=== PATIENT | male | born 1995 | race Caucasian/White ===

== ENCOUNTER 2022-07-02 18:14 | Emergency (ER) | payer MEDICAID ==
[~2022-07-02] VITALS: Ht 188 cm; Wt 100.0 kg
[~2022-07-02 18:14] MED LIST: NO HOME MEDS
[2022-07-02 18:18] VITALS: BP 130/77
[2022-07-02] MEDS ORDERED: DOXYCYCLINE 100MG CAPSULE PO STA (19:52)
[2022-07-02] MEDS ORDERED: metroNIDAZOLE 500mg tablet PO ONE (19:55)
[2022-07-02] MEDS ORDERED: CefTRIAXone 1000mg IM Kit (w/lidocaine diluent) IM ONE (19:55)
[2022-07-02] MEDS ORDERED: PENICILLIN G BENZATHINE 2,400,000 UNIT/4 ML SYRINGE IM ONE (20:03)
[2022-07-02] MEDS ORDERED: DOXY-11 PO (20:33)
== END 2022-07-02 20:51 | disposition home or self-care (01) ==
LOC: ER 18:14
DX: A64 Unspecified sexually transmitted disease (principal); F17.200 Nicotine dependence, unspecified, uncomplicated; F12.10 Cannabis abuse, uncomplicated; F15.10 Other stimulant abuse, uncomplicated; F11.10 Opioid abuse, uncomplicated
CPT/HCPCS: 36415; 87491; 87591; 96372; 99284; J0561; J0696

== ENCOUNTER 2022-07-27 12:52 | Emergency (ER) | payer MEDICAID ==
[~2022-07-27] VITALS: Ht 188 cm; Wt 124.4 kg
[2022-07-27 14:28] LABS: BASOPHILS # (AUTO) 0.1 X10'3 (0-0.2); BASOPHILS % (AUTO) 1.3 % (0-1); EOSINOPHILS # (AUTO) 0.3 X10'3 (0-0.9); HEMATOCRIT 41.7 % (42.0-52.0); LYMPHOCYTES % (AUTO) 32.8 % (21-51); MEAN CORPUSCULAR HEMOGLOBIN 31.3 PG (27.0-31.0); MEAN CORPUSCULAR HGB CONC 33.7 g/dL (33.0-36.5); MEAN CORPUSCULAR VOLUME 92.8 FL (78-98); MEAN PLATELET VOLUME 6.9 FL (7.4-10.4); MONOCYTES # (AUTO) 0.8 X10'3 (0-0.9); NEUTROPHILS % (AUTO) 47.9 % (42-75); PLATELET COUNT 311 X10'3 (140-440); RED BLOOD COUNT 4.49 X10'6 (4.70-6.10); RED CELL DISTRIBUTION WIDTH 14.8 % (11.5-14.5); WHITE BLOOD COUNT 6.2 X10'3 (4.5-11.0)
[2022-07-27 14:40] LABS: ALANINE AMINOTRANSFERASE 63 U/L (12-78); ALBUMIN 3.5 G/DL (3.4-5.0); ALKALINE PHOSPHATASE 42 IU/L (46-116); ANION GAP 9 (8-16); ASPARTATE AMINO TRANSFERASE 46 U/L (10-37); BILIRUBIN,TOTAL 0.4 MG/DL (0.1-1.0); BLOOD UREA NITROGEN 13 MG/DL (7-18); BUN/CREATININE RATIO 15.9 (10.0-20.0); CALCIUM 9.1 MG/DL (8.5-10.1); CHLORIDE 104 MMOL/L (99-107); CREATININE 0.82 MG/DL (0.60-1.10); GLUCOSE 85 MG/DL (70-104); POTASSIUM 4.1 MMOL/L (3.5-5.1); SODIUM 141 MMOL/L (135-145); TOTAL PROTEIN 6.9 G/DL (6.4-8.2); eGFR > 90 ML/MIN
[2022-07-27 16:24] VITALS: BP 125/81
== END 2022-07-27 16:26 | disposition home or self-care (01) ==
LOC: ER 12:53
DX: R60.0 Localized edema (principal); J45.909 Unspecified asthma, uncomplicated; F12.90 Cannabis use, unspecified, uncomplicated; F15.20 Other stimulant dependence, uncomplicated
CPT/HCPCS: 36415; 71045; 80053; 83880; 85025; 93005; 99285

== ENCOUNTER 2023-07-28 20:27 | Emergency (ER) | payer MEDICAID ==
[~2023-07-28] VITALS: Ht 188 cm; Wt 99.8 kg
[2023-07-28] MEDS ORDERED: iohexol 300mg/ml 100ml inj. ONE (20:49)
[2023-07-28 20:51] LABS: BASOPHILS # (AUTO) 0.1 X10'3 (0-0.2); EOSINOPHILS # (AUTO) 0.3 X10'3 (0-0.9); EOSINOPHILS % (AUTO) 3.3 % (0-6); HEMATOCRIT 43.6 % (42.0-52.0); HEMOGLOBIN 14.6 g/dl (14.0-17.9); LYMPHOCYTES # (AUTO) 5.2 X10'3 (1.1-4.8); LYMPHOCYTES % (AUTO) 51.1 % (21-51); MEAN CORPUSCULAR HEMOGLOBIN 32.8 PG (27.0-31.0); MEAN CORPUSCULAR HGB CONC 33.4 g/dL (33.0-36.5); MEAN CORPUSCULAR VOLUME 98.1 FL (78-98); MEAN PLATELET VOLUME 6.7 FL (7.4-10.4); MONOCYTES # (AUTO) 0.7 X10'3 (0-0.9); MONOCYTES % (AUTO) 7.1 % (2-12); NEUTROPHILS # (AUTO) 3.8 X10'3 (1.8-7.7); NEUTROPHILS % (AUTO) 37.5 % (42-75); PLATELET COUNT 333 X10'3 (140-440); RED BLOOD COUNT 4.45 X10'6 (4.70-6.10); RED CELL DISTRIBUTION WIDTH 13.9 % (11.5-14.5); WHITE BLOOD COUNT 10.2 X10'3 (4.5-11.0)
[2023-07-28 21:03] LABS: PROTHROMBIN TIME 10.6 SECONDS (9.0-12.0)
[2023-07-28] MEDS: normal saline 1000ML IV soln IVB ONE (21:04)
[2023-07-28 21:20] LABS: ALANINE AMINOTRANSFERASE 90 U/L (12-78); ALBUMIN 3.9 G/DL (3.4-5.0); ALBUMIN/GLOBULIN RATIO 1.1 (1.1-1.5); ALKALINE PHOSPHATASE 53 IU/L (46-116); ANION GAP 15 (8-16); ASPARTATE AMINO TRANSFERASE 56 U/L (10-37); BILIRUBIN,TOTAL 0.5 MG/DL (0.1-1.0); BLOOD UREA NITROGEN 12 MG/DL (7-18); BUN/CREATININE RATIO 12.4 (10.0-20.0); CALCIUM 8.7 MG/DL (8.5-10.1); CHLORIDE 108 MMOL/L (99-107); CREATININE 0.97 MG/DL (0.60-1.10); ETHANOL 143 MG/DL (<10); GLUCOSE 124 MG/DL (70-104); LIPASE 16 U/L (16-77); POTASSIUM 3.1 MMOL/L (3.5-5.1); SODIUM 143 MMOL/L (135-145); TOTAL CARBON DIOXIDE 20.3 MMOL/L (24-32); TOTAL PROTEIN 7.6 G/DL (6.4-8.2); eCRCL 134 ML/MIN; eGFR > 90 ML/MIN
[2023-07-28 22:03] LABS: PLATELET ESTIMATE NORMAL; TOTAL CELLS COUNTED 100
[2023-07-28 22:04] LABS: SMUDGE CELLS 1+
[2023-07-28 22:24] VITALS: BP 115/79; PULSE 100; RESP 14; TEMP 98.5; O2SAT 100
== END 2023-07-28 21:12 | disposition short-term general hospital (02) ==
LOC: ER 20:27
DX: S21.112A Laceration without foreign body of left front wall of thorax without penetration into thoracic cavity, initial encounter (principal); J45.909 Unspecified asthma, uncomplicated; F12.90 Cannabis use, unspecified, uncomplicated; F15.10 Other stimulant abuse, uncomplicated; X58.XXXA Exposure to other specified factors, initial encounter; Y93.89 Activity, other specified; Y92.89 Other specified places as the place of occurrence of the external cause; Y99.8 Other external cause status
CPT/HCPCS: 36415; 71045; 80053; 80320; 83690; 84484; 85007; 85025; 85610; 86885; 86900; 86901; 93005; 99291; J7030; J3490; Q9967

== ENCOUNTER 2023-08-14 17:38 | Emergency (ER) | payer MEDICAID ==
[~2023-08-14] VITALS: Ht 188 cm; Wt 85.9 kg
[2023-08-14 17:42] VITALS: BP 108/69; PULSE 123; TEMP 98.9; O2SAT 97
[2023-08-14 17:52] VITALS: RESP 16
== END 2023-08-14 18:15 | disposition left against medical advice (07) ==
LOC: ER 17:39
DX: R52 Pain, unspecified (principal); J45.909 Unspecified asthma, uncomplicated; F12.90 Cannabis use, unspecified, uncomplicated; F15.90 Other stimulant use, unspecified, uncomplicated; F11.90 Opioid use, unspecified, uncomplicated
CPT/HCPCS: 71045; 93005; 99283

== ENCOUNTER 2023-11-13 00:58 | Emergency (ER) | payer MEDICAID ==
[~2023-11-13] VITALS: Ht 185.4 cm; Wt 90.9 kg
[2023-11-13 01:21] VITALS: PULSE 77
--- NOTE | 2023-11-13 02:01 | NUR ---
patient expressed the need for blood work for STD detection; no complains observed; for MD evaluation
[2023-11-13 03:01] VITALS: BP 111/88; RESP 16; TEMP 98; O2SAT 98
[2023-11-15 19:40] LABS: HIV-1 RNA Non Reactive (Non Reactive); HIV-2 RNA Non Reactive (Non Reactive)
[2023-11-16 15:09] LABS: CHLAMYDIA TRACHOMATIS, NAA Negative (Negative)
[2023-11-17 05:37] LABS: HSV TYPE 1-SPECIFIC AB, IGG 4.98 index (0.00-0.90)
== END 2023-11-13 03:04 | disposition home or self-care (01) ==
LOC: ER 00:59
DX: Z20.2 Contact with and (suspected) exposure to infections with a predominantly sexual mode of transmission (principal); J45.909 Unspecified asthma, uncomplicated; F12.90 Cannabis use, unspecified, uncomplicated; F15.90 Other stimulant use, unspecified, uncomplicated
CPT/HCPCS: 36415; 86592; 86695; 87491; 87535; 87538; 99283

== ENCOUNTER 2024-03-29 03:34 | Emergency (ER) | payer MEDICAID ==
[~2024-03-29] VITALS: Ht 188 cm; Wt 89.2 kg
[2024-03-29] MEDS ORDERED: AMOX500C2 PO (04:15)
[2024-03-29] MEDS: ondansetron 4mg rapidly disintigrating tab PO ONE (04:21)
[2024-03-29] MEDS: amoxicillin 250mg capsule PO ONE (04:21)
[2024-03-29] MEDS: ibuprofen tablet 400 MG TABLET PO ONE (04:21)
[2024-03-29] MEDS: acetaminophen 325mg tablet PO ONE (04:21)
[2024-03-29 04:30] VITALS: BP 119/72; PULSE 92; RESP 18; TEMP 98.9; O2SAT 98
== END 2024-03-29 04:31 | disposition home or self-care (01) ==
LOC: ER 03:36
DX: K08.89 Other specified disorders of teeth and supporting structures (principal); J45.909 Unspecified asthma, uncomplicated; F12.90 Cannabis use, unspecified, uncomplicated; F15.90 Other stimulant use, unspecified, uncomplicated; F11.90 Opioid use, unspecified, uncomplicated
CPT/HCPCS: 99284

== ENCOUNTER 2024-09-05 22:29 | Emergency (ER) | payer MEDICAID ==
[~2024-09-05] VITALS: Ht 185.4 cm; Wt 97.5 kg
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
[2024-09-06] MEDS: bacitracin 15gm ointment TP ONE (00:06)
[2024-09-06] MEDS: TETanus/Pertussis (Acell)/Diphther VAC/PF (Tdap-Adult) 0.5ml syringe IMVAC ONE (00:07)
[2024-09-06 00:27] VITALS: BP 124/80; PULSE 99; RESP 16; TEMP 98.2; O2SAT 99
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
== END 2024-09-06 ==
LOC: ER 22:30
DX: S43.102A Unspecified dislocation of left acromioclavicular joint, initial encounter (principal); S61.411A Laceration without foreign body of right hand, initial encounter; J45.909 Unspecified asthma, uncomplicated; F12.90 Cannabis use, unspecified, uncomplicated; F15.90 Other stimulant use, unspecified, uncomplicated; F11.90 Opioid use, unspecified, uncomplicated; V89.2XXA Person injured in unspecified motor-vehicle accident, traffic, initial encounter; Y93.89 Activity, other specified; Y92.410 Unspecified street and highway as the place of occurrence of the external cause; Y99.8 Other external cause status
CPT/HCPCS: 12002; 73030; 73120; 90471; 90715; 99284; A4565